=== PATIENT | male | born 1970 | race Caucasian/White ===

== ENCOUNTER 2016-09-08 17:13 | Emergency (ER) | payer SELFPAY ==
[2016-09-08] MEDS ORDERED: IBUPROFEN 600 MG TABLET ONE (18:24)
[2016-09-08] MEDS ORDERED: ACETAMINOPHEN 325 MG TABLET ONE (18:25)
== END 2016-09-08 18:35 | disposition home or self-care (01) ==
LOC: ED 17:13
DX: H92.01 Otalgia, right ear (principal)
CPT/HCPCS: 99283 ×2; A9270 ×2